=== PATIENT | female | born 2000 | race Caucasian/White ===

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

== ENCOUNTER 2018-06-12 13:30 | Inpatient (IN) ==
[2018-06-12] MEDS ORDERED: Sodium Chlor 0.9% Inj 500 ML IV.SIG PRN (14:18)
[2018-06-12] MEDS ORDERED: Sod Chloride 0.9% Inj 1,000 ML IV.CONT PRN (14:18)
[2018-06-12] MEDS ORDERED: fentaNYL Citrate Inj 100 MCG/2 ML Ampul IV.PUSH PRN ×2 (14:18)
[2018-06-12] MEDS ORDERED: Naloxone Inj 0.4 MG/ML Vial IV.PUSH PRN (14:18)
[2018-06-12] MEDS ORDERED: Citric Acid/Sodium Citrate Liq 30 ML UDC PO SCH (14:30)
[2018-06-12] MEDS ORDERED: Oxytocin 30 Units/500ml Premix 30 UNITS/500 ML BAG IV.SIG ONE (14:30)
--- NOTE | 2018-06-12 14:35 | P.HPFP ---
History of Present Illness Primary Care Physician: Karson Aguilar MD History of Present Illness: Patient is a [] year old G[]P[] at [] and []/7 weeks gestation by [US at __ weeks/LMP], KG [], who presents to the OB ED with []. []. She denies leakage of fluid, vaginal bleeding, and contractions. She feels baby moving regularly. She denies JACQUES/N/V/D/fever/sick contacts/SOB/calf pain/dizziness/seeing spots. OB care is with []. KG is 06/12/2018. Last US was 03/28/18. No evidence of placenta previa, normal amniotic fluid, orientation was cephalic. Initial lab was positive for chlamydia. Patient was treated and re- tested on 05-22-18, results were negative. All other labs were negative. No complications this . Medical conditions: none Surgical hx: none Social hx: Inpatient Certification: I certify that the inpatient services were ordered in accordance with Medicare regulations governing the order. This includes certification that hospital inpatient services are reasonable and necessary and in the case of services not specified as inpatient-only under 42 CFR 419.22(n), that they are appropriately provided as inpatient services in accordance to with the 2-midnight benchmark under 43 CFR 412.3(e) Estimated Total Length of Stay (Days): 2 Plans for Post Hospital Care: Home Medications and Allergies Allergies Allergy/AdvReac Type Severity Reaction Status Date / Time ibuprofen Allergy Severe Hives Verified 05/17/18 05:29 Home Medications Medication Instructions Recorded Confirmed Type No Known Home Medications 05/17/18 05/17/18 History Exam Vital signs: Vital Signs 06/12/18 13:47 06/12/18 14:00 Temperature 98.7 F Pulse Rate 90 Respiratory Rate 20 Blood Pressure 140/83 Caprini VTE Risk Assessment Caprini Risk Assessment Model: Point Value = 1 Point Value = 2 Point Value = 3 Point Value = 5 Age 41-60 Minor surgery BMI > 25 kg/m2 Swollen legs Varicose veins or History of unexplained or recurrent spontaneous Oral contraceptives or hormone replacement Sepsis (< 1 month) Serious lung disease, including pneumonia (< 1 month) Abnormal pulmonary function Acute myocardial infarction Congestive heart failure (< 1 month) History of inflammatory bowel disease Medical patient at bed rest Age 61-74 Arthroscopic surgery Major open surgery (> 45 min) Laparoscopic surgery (> 45 min) Malignancy Confined to bed (> 72 hours) Immobilizing plaster cast Central venous access Age >= 75 History of VTE Family history of VTE Factor V Leiden Prothrombin [id number] Lupus anticoagulant Anticardiolipin antibodies Elevated serum homocysteine Heparin-induced thrombocytopenia Other congenital or acquired thrombophilia Stroke (< 1 month) Elective arthroplasty Hip, pelvis, or leg fracture Acute spinal cord injury (< 1 month) Prophylaxis Regimen: Total Risk Factor Score Risk Level Prophylaxis Regimen 0-1 Low Early ambulation 2 Moderate Order ONE of the following: *Sequential Compression Device (SCD) *Heparin 5000 units SQ BID 3-4 Higher Order ONE of the following medications: *Heparin 5000 units SQ TID *Enoxaparin/Lovenox 40 mg SQ daily (WT < 150 kg, CrCl > 30 mL/min) *Enoxaparin/Lovenox 30 mg SQ daily (WT < 150 kg, CrCl > 10-29 mL/min) *Enoxaparin/Lovenox 30 mg SQ BID (WT < 150 kg, CrCl > 30 mL/min) AND/OR *Sequential Compression Device (SCD) 5 or more Highest Order ONE of the following medications: *Heparin 5000 units SQ TID (Preferred with Epidurals) *Enoxaparin/Lovenox 40 mg SQ daily (WT < 150 kg, CrCl > 30 mL/min) *Enoxaparin/Lovenox 30 mg SQ daily (WT < 150 kg, CrCl > 10-29 mL/min) *Enoxaparin/Lovenox 30 mg SQ BID (WT < 150 kg, CrCl > 30 mL/min) AND *Sequential Compression Device (SCD)
--- NOTE | 2018-06-12 14:36 | ED ---
History of Present Illness Primary Care Physician: Karson Aguilar MD Chief Complaint: leakage of fluid History of Present Illness: Patient is a 17 year old at 40 and 0 weeks gestation by [US at 11 weeks], KG 06/12/2018, who presents to the OB ED with leakage of clear fluid. Also endorses pelvic pressure. These symptoms started at 9 pm last night. Had a brief episode of cramping that resolved. She denies vaginal bleeding and contractions. She feels baby moving regularly. She denies JACQUES/N/V/D/fever/sick contacts/SOB/calf pain/dizziness/seeing spots. OB care is with Dr. Gregory. KG is 06/12/2018. Last US was 06/12/2018. No evidence of placenta previa, normal amniotic fluid, orientation was cephalic. Wt was at the 73% for 34 w3d. Wt at the time was estimated to be 5lbs. Initial lab was positive for chlamydia. Patient was treated and re- tested on 05-22-18, results were negative. All other labs were negative. No complications this . Medications or supplements: none Medical conditions: none Surgical hx: none Social hx: none - Inpatient Certification I certify that the inpatient services were ordered in accordance with Medicare regulations governing the order. This includes certification that hospital inpatient services are reasonable and necessary and in the case of services not specified as inpatient-only under 42 CFR 419.22(n), that they are appropriately provided as inpatient services in accordance to with the 2-midnight benchmark under 43 CFR 412.3(e) Estimated Total Length of Stay (Days): 2 Plans for Post Hospital Care: Home [facility] - History History Provided By: Patient - Tobacco History Tobacco Use In Past 30 Days: No Medications and Allergies Allergies Allergy/AdvReac Type Severity Reaction Status Date / Time ibuprofen Allergy Severe Hives Verified 05/17/18 05:29 Home Medications Medication Instructions Recorded Confirmed Type No Known Home Medications 05/17/18 06/12/18 History Active Medications: Active Medications Citric Acid/Sodium Citrate (Sodium Citrate/Citric Acid Liq) 30 ml 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 Stop: 06/16/18 14:29 Fentanyl Citrate (Fentanyl Inj) 100 mcg IV.PUSH Q1H PRN PRN Reason: PAIN SCALE 6 TO 10 Fentanyl Citrate (Fentanyl Inj) 50 mcg IV.PUSH Q1H PRN PRN Reason: Pain Scale 3 - 5 Lactated Ringer's (Lr 1000 Ml Inj) 1,000 mls @ 125 mls/hr IV.CONT .Q8H ROSSI Lactated Ringer's (Lr 1000 Ml Inj) 1,000 mls @ 3,000 mls/hr IV.SIG UNSCH PRN PRN Reason: compromise or epidural Sodium Chloride (Ns Inj) 500 mls @ 1,000 mls/hr IV.SIG UNSCH PRN PRN Reason: SEE LABEL COMMENTS Sodium Chloride (Ns Inj) 1,000 mls @ 100 mls/hr IV.CONT .Q10H PRN PRN Reason: SEE LABEL COMMENTS Oxytocin (Pitocin 30 Units/Ns 500 Ml Premix) 30 units in 500 mls @ 999 mls/hr IV.SIG BOLUS ONE Stop: 06/12/18 15:00 Lidocaine HCl (Xylocaine 1% Inj) 0.1 ml I-DERMAL PRN PRN PRN Reason: For IV start Stop: 06/15/18 14:17 Lidocaine HCl (Xylocaine 1% Inj) 10 ml INFILTRATN PRN PRN PRN Reason: For episiotomy repair Stop: 06/14/18 14:17 Mineral Oil (Muri-Lube Oil) 10 ml TOPICAL UNSCH PRN PRN Reason: PRN perineal massage Naloxone HCl (Narcan Inj) 0.1 mg IV.PUSH Q2M PRN PRN Reason: for opiate reversal Ondansetron HCl (Zofran Inj) 4 mg IV.PUSH Q6H PRN PRN Reason: NAUSEA OR VOMITING Exam Vital signs: Vital Signs 06/12/18 13:47 06/12/18 14:00 06/12/18 14:27 Temperature 98.7 F Pulse Rate 90 Respiratory Rate 20 18 Blood Pressure 140/83 Intake & Output 06/11/18 06/12/18 06/12/18 18:59 06:59 18:59 Weight 95.254 kg Narrative: GENERAL: Well-nourished, well-developed patient. SKIN: Warm and dry. HEAD: Normocephalic and atraumatic. EYES: No scleral icterus. No injection or drainage. ENT: No nasal drainage noted. Mucous membranes pink. Airway patent. NECK: Supple, trachea midline. No JVD. CARDIOVASCULAR: Regular rate and rhythm without murmurs, gallops, or rubs. RESPIRATORY: Breath sounds equal bilaterally. No accessory muscle use. BREASTS: Bilateral exam showed no masses , no retractions, no nipple discharge. ABDOMEN/GI: Abdomen soft, non-tender, bowel sounds present, no rebound, no guarding Gravid to 40 weeks size GENITOURINARY: External Genitalia: intact and normal in appearance Cervix: midline Dilatation: 6cm Effacement: 80 Station: -1 Presentation: cephalic Membranes: forebag Uterine Contractions: irregular variability FHT's: Category: 1 Baseline: 140 Reactive: yes Variability: moderate Decels: negative EXTREMITIES: No cyanosis or edema. BACK: Nontender without obvious deformity. No CVA tenderness. NEUROLOGICAL: Awake and alert. Motor and sensory grossly within normal limits. Five out of 5 muscle strength in all muscle groups. Normal speech. Results - Labs CBC & Chem 7: 06/12/18 14:26 Assessment and Plan - Diagnosis (1) 40 weeks gestation of Code(s): Z3A.40 - 40 weeks gestation of Status: Acute - Plan A/P Patient is a 17 year old at 40/0 weeks gestation who presents to OB ED with leakage of fluid. Cat 1 tracing, 6/80/-1 w/forebag. Amnisure positive. GBS negative. Desires epidural and plans to breastfeed and use OCPs after delivery. Admit to labor and delivery Monitor heart tones Routine care Recheck in 2 hours Discussed w/Dr. Marinelli - Attending Attestation The exam, history, and the medical decision-making described in the above note were completed with the assistance of the resident physician. I reviewed and agree with the findings presented. I attest that I had a [id number] encounter with the patient on the same day, and personally performed and documented my assessment and findings in the medical record. 17 at 40wks presenting with SROM, +amnisure, 6/80/0 with forebag, Ctx Q4min, Cat 1 Strip, GBS Neg, admitted for active labor, expecting mgmt, US- 34wks, vtx, efw 73%, 5lb. 14oz., no previa, VALENTE WNL. Case discussed with Dr. Swain. -Susanne Marinelli M.D. Discharge Plan - Physicians Team Primary Care Provider: Karson Aguilar Attending Provider: uSsanne Marinelli
[2018-06-12 14:55] LABS: Baso # (Auto) 0.1 th/mm3 (0.0-0.2); Baso % (Auto) 0.7 % (0.0-2.0); Eos # (Auto) 0.1 th/mm3 (0.0-0.4); Hematocrit 30.3 % (35.0-46.0); Hemoglobin 9.9 gm/dL (11.6-15.3); Lymph # (Auto) 1.9 th/mm3 (1.0-4.8); Mean Corpuscular HGB Conc 32.5 % (32.0-36.0); Mean Corpuscular Hemoglobin 24.3 pg (27.0-34.0); Mean Corpuscular Volume 74.8 fL (80.0-100.0); Mean Platelet Volume 8.3 fL (7.0-11.0); Mono % (Auto) 7.9 % (0.0-8.0); Neut # (Auto) 9.5 th/mm3 (1.8-7.7); Neut % (Auto) 75.4 % (16.0-70.0); Platelet Count 233 th/mm3 (150-450); Red Blood Count 4.05 mil/mm3 (4.00-5.30); White Blood Count 12.6 th/mm3 (4.0-11.0)
--- NOTE | 2018-06-12 15:07 | P.HPOB ---
History of Present Illness Primary Care Physician: Karson Aguilar MD Chief Complaint: leakage of fluid History of Present Illness: Patient is a 17 year old at 40 and 0 weeks gestation by [US at 11 weeks], KG 06/12/2018, who presents to the OB ED with leakage of clear fluid. Also endorses pelvic pressure. These symptoms started at 9 pm last night. Had a brief episode of cramping that resolved. She denies vaginal bleeding and contractions. She feels baby moving regularly. She denies JACQUES/N/V/D/fever/sick contacts/SOB/calf pain/dizziness/seeing spots. OB care is with Dr. Gregory. KG is 06/12/2018. Last US was 06/12/2018. No evidence of placenta previa, normal amniotic fluid, orientation was cephalic. Wt was at the 73% for 34 w3d. Wt at the time was estimated to be 5lbs. Initial lab was positive for chlamydia. Patient was treated and re- tested on 05-22-18, results were negative. All other labs were negative. No complications this . Medications or supplements: none Medical conditions: none Surgical hx: none Social hx: none - Inpatient Certification I certify that the inpatient services were ordered in accordance with Medicare regulations governing the order. This includes certification that hospital inpatient services are reasonable and necessary and in the case of services not specified as inpatient-only under 42 CFR 419.22(n), that they are appropriately provided as inpatient services in accordance to with the 2-midnight benchmark under 43 CFR 412.3(e) Estimated Total Length of Stay (Days): 2 Plans for Post Hospital Care: Home [facility] - History History Provided By: Patient - Tobacco History Tobacco Use In Past 30 Days: No Medications and Allergies Active Medications: Active Medications Citric Acid/Sodium Citrate (Sodium Citrate/Citric Acid Liq) 30 ml PO SPEECH LANGUAGE THERAPIST [facility] Stop: 06/16/18 14:29 Fentanyl Citrate (Fentanyl Inj) 100 mcg IV.PUSH Q1H PRN PRN Reason: PAIN SCALE 6 TO 10 Fentanyl Citrate (Fentanyl Inj) 50 mcg IV.PUSH Q1H PRN PRN Reason: Pain Scale 3 - 5 Lactated Ringer's (Lr 1000 Ml Inj) 1,000 mls @ 125 mls/hr IV.CONT .Q8H [facility] Lactated Ringer's (Lr 1000 Ml Inj) 1,000 mls @ 3,000 mls/hr IV.SIG UNSCH PRN PRN Reason: compromise or epidural Sodium Chloride (Ns Inj) 500 mls @ 1,000 mls/hr IV.SIG UNSCH PRN PRN Reason: SEE LABEL COMMENTS Sodium Chloride (Ns Inj) 1,000 mls @ 100 mls/hr IV.CONT .Q10H PRN PRN Reason: SEE LABEL COMMENTS Oxytocin (Pitocin 30 Units/Ns 500 Ml Premix) 30 units in 500 mls @ 999 mls/hr IV.SIG BOLUS ONE Stop: 06/12/18 15:00 Lidocaine HCl (Xylocaine 1% Inj) 0.1 ml I-DERMAL PRN PRN PRN Reason: For IV start Stop: 06/15/18 14:17 Lidocaine HCl (Xylocaine 1% Inj) 10 ml INFILTRATN PRN PRN PRN Reason: For episiotomy repair Stop: 06/14/18 14:17 Mineral Oil (Muri-Lube Oil) 10 ml TOPICAL UNSCH PRN PRN Reason: PRN perineal massage Naloxone HCl (Narcan Inj) 0.1 mg IV.PUSH Q2M PRN PRN Reason: for opiate reversal Ondansetron HCl (Zofran Inj) 4 mg IV.PUSH Q6H PRN PRN Reason: NAUSEA OR VOMITING Allergies Allergy/AdvReac Type Severity Reaction Status Date / Time ibuprofen Allergy Severe Hives Verified 05/17/18 05:29 Home Medications Medication Instructions Recorded Confirmed Type No Known Home Medications 05/17/18 05/17/18 History Exam Vital signs: Vital Signs 06/12/18 13:47 06/12/18 14:00 06/12/18 14:27 Temperature 98.7 F Pulse Rate 90 Respiratory Rate 20 18 Blood Pressure 140/83 Intake & Output 06/11/18 06/12/18 06/12/18 18:59 06:59 18:59 Weight 95.254 kg Narrative: GENERAL: Well-nourished, well-developed patient. SKIN: Warm and dry. HEAD: Normocephalic and atraumatic. EYES: No scleral icterus. No injection or drainage. ENT: No nasal drainage noted. Mucous membranes pink. Airway patent. NECK: Supple, trachea midline. No JVD. CARDIOVASCULAR: Regular rate and rhythm without murmurs, gallops, or rubs. RESPIRATORY: Breath sounds equal bilaterally. No accessory muscle use. BREASTS: Bilateral exam showed no masses , no retractions, no nipple discharge. ABDOMEN/GI: Abdomen soft, non-tender, bowel sounds present, no rebound, no guarding Gravid to 40 weeks size GENITOURINARY: External Genitalia: intact and normal in appearance Cervix: midline Dilatation: 6cm Effacement: 80 Station: -1 Presentation: cephalic Membranes: forebag Uterine Contractions: irregular variability FHT's: Category: 1 Baseline: 140 Reactive: yes Variability: moderate Decels: negative EXTREMITIES: No cyanosis or edema. BACK: Nontender without obvious deformity. No CVA tenderness. NEUROLOGICAL: Awake and alert. Motor and sensory grossly within normal limits. Five out of 5 muscle strength in all muscle groups. Normal speech. Assessment and Plan - Diagnosis (1) 40 weeks gestation of Code(s): Z3A.40 - 40 weeks gestation of Status: Acute - Plan A/P Patient is a 17 year old at 40/0 weeks gestation who presents to OB ED with leakage of fluid. Cat 1 tracing, 6/80/-1 w/forebag. Amnisure positive. GBS negative. Desires epidural and plans to breastfeed and use OCPs after delivery. Admit to labor and delivery Monitor heart tones Routine care Recheck in 2 hours Discussed w/Dr. Marinelli The exam, history, and the medical decision-making described in the above note were completed with the assistance of the resident physician. I reviewed and agree with the findings presented. I attest that I had a [id number] encounter with the patient on the same day, and personally performed and documented my assessment and findings in the medical record. 17 at 40wks presenting with SROM, +amnisure, 6/80/0 with forebag, Ctx Q4min, Cat 1 Strip, GBS Neg, admitted for active labor, expecting mgmt, US- 34wks, vtx, efw 73%, 5lb. 14oz., no previa, VALENTE WNL. Due to ROM at 9AM, due to > 18hrs ruptured will start PNC, Case discussed with Dr. Swain. -Susanne Marinelli M.D. Discharge Plan - Discharge Disposition Patient Disposition: ED Admit(ED Internal Use Only) - Physicians Team ED Provider: Susanne Marinelli Primary Care Provider: Karson Aguilar
[2018-06-12 15:09] LABS: Bacteria,Urine Occasional /hpf; Bilirubin,Urine Negative (Negative); Clarity,Urine Clear (Clear); Color,Urine Yellow (Yellw/Straw); Glucose,Urine (UA) Negative (Negative); Leukocyte Esterase,Urine Moderate (Negative); Mucus,Urine Few /lpf (Occasional); Nitrite,Urine Negative (Negative); Specific Gravity,Urine 1.005 (1.002-1.035); Squamous Epithelial Cell,Urine 2 /hpf (0-5)
[2018-06-12] MEDS ORDERED: Sodium Chloride 0.9% 2 ML Flush PRN IV.FLUSH (16:33)
[2018-06-12] MEDS ORDERED: fentaNYL 2MCG-Bupiv 0.125% Epi 150 ML EPIDURAL ONE (16:55)
[2018-06-12] MEDS ORDERED: Penicillin G Potassium Inj 5,000,000 UNIT in Sodium Chloride 0.9% Inj 100 ML IV.SIG ONE (17:00)
--- NOTE | 2018-06-12 17:03 | P.PNADD ---
Addendum to Inpatient Note Reason for Addendum: Additional Documentation Additional information: Patient was rechecked and found to be 6 cm. Epidural was ordered. Strip remains Cat 1. Discussed w/nursing and Dr. Marinelli. The exam, history, and the medical decision-making described in the above note were completed with the assistance of the resident physician. I reviewed and agree with the findings presented. I attest that I had a [id number] encounter with the patient on the same day, and personally performed and documented my assessment and findings in the medical record. -Susanne Marinelli MD
[2018-06-12] MEDS ORDERED: fentaNYL Citrate Inj 100 MCG/2 ML Ampul EPIDURAL ONE (17:29)
[2018-06-12] MEDS ORDERED: fentaNYL 2MCG-Bupiv 0.125% Epi 150 ML EPIDURAL PRN (17:29)
[2018-06-12 17:50] LABS: Rubella IgG Antibody 120.5 IU/mL (10.0-500.0)
[2018-06-12] MEDS ORDERED: Oxytocin 30 Units/500ml Premix 30 UNITS/500 ML BAG IV.SIG PRN (18:57)
--- NOTE | 2018-06-12 19:09 | P.OBLABOR ---
Subjective Interval history: Pt doing well. No complaints. Pain is well-controlled with epidural. Still waiting for father of baby to arrive, but agrees to starting Pitocin. Objective Vital Signs: Vital Signs - 8 hr 06/12/18 13:47 06/12/18 14:00 06/12/18 14:27 Temperature 98.7 F Pulse Rate 90 Respiratory Rate 20 18 Blood Pressure 140/83 06/12/18 15:31 06/12/18 15:32 06/12/18 16:43 Temperature 98.2 F Pulse Rate 73 Respiratory Rate 18 18 Blood Pressure 122/70 06/12/18 16:44 06/12/18 17:01 06/12/18 17:13 Temperature Pulse Rate 86 109 H 95 H Respiratory Rate 18 Blood Pressure 112/61 133/74 122/75 06/12/18 17:15 06/12/18 17:20 06/12/18 17:30 Temperature Pulse Rate 79 89 88 Respiratory Rate Blood Pressure 126/64 130/69 122/76 06/12/18 17:40 06/12/18 17:53 06/12/18 18:00 Temperature Pulse Rate 95 H 98 H 96 H Respiratory Rate 18 Blood Pressure 137/80 132/75 132/73 06/12/18 18:58 Temperature Pulse Rate 82 Respiratory Rate 18 Blood Pressure 129/73 Objective: Pelvic Exam: Cervix: midline Dilatation: 6cm Effacement: 80 Station: 0 Presentation: vertex Membranes: ruptured Uterine Contractions: q2min FHT's: Category: 1 Baseline: 120s Reactive: yes Variability: moderate Decels: none Assessment and Plan - Diagnosis (1) 40 weeks gestation of Code(s): Z3A.40 - 40 weeks gestation of Status: Acute Plan: Patient is a 17 year old at 40/0 weeks gestation who presents to OB ED with leakage of fluid. Cat 1 tracing, /-1 w/forebag on admission. Amnisure positive. GBS negative. Desires epidural and plans to breastfeed and use OCPs after delivery. Continue to monitor heart tones- Cat 1, reassuring at this time Forebag ruptured, IUPC placed Due to pt being ruptured since 2100 last night, abx were ordered prophylactically -Penicillin G [id number] units x1 -Pen G [id number] units q4h Pitocin started The exam, history, and the medical decision-making described in the above note were completed with the assistance of the resident physician. I reviewed and agree with the findings presented. I attest that I had a [id number] encounter with the patient on the same day, and personally performed and documented my assessment and findings in the medical record. -Susanne Marinelli MD
[2018-06-12] MEDS ORDERED: Penicillin G Potassium Inj 2,500,000 UNIT in Sodium Chlor 0.9% Inj 100 ML IV.SIG SCH ×2 (20:02→21:00)
[2018-06-12] MEDS ORDERED: Bupivacaine PF 0.25% Inj 10 ML Vial ONE (21:52)
--- NOTE | 2018-06-12 22:45 | P.OBLABOR ---
Subjective Interval history: Patient doing well, epidural in place. Patient reports that she is feeling more vaginal pressure with the ctx. Objective Vital Signs: Vital Signs - 8 hr 06/12/18 15:31 06/12/18 15:32 06/12/18 16:43 Temperature 98.2 F Pulse Rate 73 Respiratory Rate 18 18 Blood Pressure 122/70 06/12/18 16:44 06/12/18 17:01 06/12/18 17:13 Temperature Pulse Rate 86 109 H 95 H Respiratory Rate 18 Blood Pressure 112/61 133/74 122/75 06/12/18 17:15 06/12/18 17:20 06/12/18 17:30 Temperature Pulse Rate 79 89 88 Respiratory Rate Blood Pressure 126/64 130/69 122/76 06/12/18 17:40 06/12/18 17:53 06/12/18 18:00 Temperature Pulse Rate 95 H 98 H 96 H Respiratory Rate 18 Blood Pressure 137/80 132/75 132/73 06/12/18 18:58 06/12/18 19:20 06/12/18 19:30 Temperature 97.8 F Pulse Rate 82 78 81 Respiratory Rate 18 18 Blood Pressure 129/73 143/73 H 126/71 06/12/18 20:15 06/12/18 20:30 06/12/18 20:45 Temperature Pulse Rate 85 81 82 Respiratory Rate 18 18 Blood Pressure 133/72 118/56 L 129/73 06/12/18 21:15 06/12/18 21:30 06/12/18 21:45 Temperature 99.2 F Pulse Rate 89 Respiratory Rate 18 18 Blood Pressure 130/65 Objective: Pelvic Exam: Cervix: [-] Dilatation: [-] Effacement: [-] Station: [-] Presentation: [-] Membranes: [intact or ruptured] Uterine Contractions: [-] FHT's: Category: [-] Baseline: [-] Reactive: [-] Variability: [-] Decels: [-] Weeks Gestation: 40 Patient Started Active Labor: Yes Assessment and Plan - Diagnosis (1) 40 weeks gestation of Code(s): Z3A.40 - 40 weeks gestation of Status: Acute Plan: Patient is a 17 year old at 40/0 weeks gestation who presents to OB ED with leakage of fluid. Cat 1 tracing, /-1 w/forebag on admission. Amnisure positive. GBS negative. Desires epidural and plans to breastfeed and use OCPs after delivery. Continue to monitor heart tones- Cat 1, reassuring at this time Forebag ruptured, IUPC placed Due to pt being ruptured since 2100 last night, abx were ordered prophylactically -Penicillin G [id number] units x1 -Pen G [id number] units q4h Pitocin started The exam, history, and the medical decision-making described in the above note were completed with the assistance of the resident physician. I reviewed and agree with the findings presented. I attest that I had a [id number] encounter with the patient on the same day, and personally performed and documented my assessment and findings in the medical record. -Susanne Marinelli MD - Plan 17 y/o at 40wks who presented in active labor with +SROM that occurred at 9PM on 06/11, +amnisure. Last US- 34wks, vtx, efw 73%, 5lb. 14oz., no previa, VALENTE WNL, HD#1 EFM: 140's, +accels, -decels, moderate variability, Cat 1 tracing SVE 9-10/90/-2, soft, anterior, vertex presentation, IUPC in place TOCO Q2-3minutes, regular 1. Active Labor: Progressing well, cont. Pitocin to keep MVU's adequate, will monitor for signs of distress. 2. GBS Neg: Due to ROM at 9PM on 06/11 ( >18hrs) started on PNC on admission for infection PPX , will monitor for signs of infection 3. +Chlamydia in : Neg NORBERT on 05/22 4. Disposition: progressing well, expectant management. Case discussed with Dr. Swain on admission who agrees with plan. -Susanne Marinelli M.D.
[2018-06-12] MEDS: Sodium Chloride 0.9% 2 ML Flush BID IV.FLUSH SCH (22:52)
--- NOTE | 2018-06-13 01:30 | P.OBDELI ---
Weeks Gestation: 40 Artificial Rupture of Membrane: No Anesthesia: Epidural Episiotomy: none Vaginal Delivery: Normal Presentation: Occiput anterior Nuchal Cord: None Delayed Cord Clamping (45 sec): Yes Placenta: Spontaneous delivery, Intact Laceration: Vaginal (left periurethral, gallardo in and out cath placed during repair), Perineal (2nd degree midline), 2 deg Infant: Male Infant Male A Delivery Date: 06/13/18 Infant Delivery Time: 00:23 Weight: 3.941 kg score (1 min): 8 score (5 min): 9 Additional Information: The exam, history, and the medical decision-making described in the above note were completed with the assistance of the resident physician. I reviewed and agree with the findings presented. I attest that I had a [id number] encounter with the patient on the same day, and personally performed and documented my assessment and findings in the medical record. s/p , uncomplicated, VMI, apgars 8/9, BW 8lb. 11oz. , 2nd degree ML laceration repaired with 3-[address], L periurethral suture repaired with 3-0 vicryl rapide on SH with (in and out cath placed in the urethra during repair). After the repair, rectal exam performed with mucosa intact. Patient stable, I assisted with both the delivery and the repair. -Susanne Marinelli MD
[2018-06-13] MEDS ORDERED: Zolpidem Tartrate 5 MG Tablet PO PRN (01:31)
[2018-06-13] MEDS ORDERED: Oxytocin 30 Units/500ml Premix 30 UNITS/500 ML BAG IV.CONT PRN (01:31)
[2018-06-13] MEDS ORDERED: Bisacodyl 10 MG Supp RECTAL PRN (01:31)
[2018-06-13] MEDS: Witch Hazel 50%/Glyderin 12.5% 40 Pad Jar RECTAL PRN (05:54)
[2018-06-13] MEDS: Benzocaine 20% Top Spray 60 ML Can TOPICAL PRN (05:54)
[2018-06-13] MEDS: Senna/Docusate Sodium 8.6/50 MG Tablet PO SCH ×2 (08:47→21:13)
[2018-06-13] MEDS: Prenatal Vit/Ca/Iron/Folic Acid Tablet PO SCH (08:47)
[2018-06-13] MEDS: Sodium Chloride 0.9% 2 ML Flush BID IV.FLUSH SCH ×2 (08:48→21:16)
[2018-06-13] MEDS: Acetaminophen 325 MG Tablet PO PRN ×2 (15:19→21:13)
[2018-06-13] MEDS ORDERED: Diphtheria/Tetanus/Pertussis Vaccine Inj 0.5 ML Syringe IM ONE (16:00)
[2018-06-13] MEDS ORDERED: Measles/Mumps/Rubella Vaccine Inj 0.5 ML Vial SQ ONE (16:00)
[2018-06-14] MEDS: Acetaminophen 325 MG Tablet PO PRN ×3 (05:46→16:05)
--- NOTE | 2018-06-14 08:11 | P.PNOB ---
Subjective Post day: 1 Interval history: day # 1. AFVSS overnight. Pain well-controlled. Decreased lochia. Denies dysuria. No breast tenderness. She is feeding the baby via breast/ bottle. Appetite good. No nausea or vomiting. + flatus. no bowel movement. Ambulating well. Denies calf pain, shortness of breath, or cough. Otherwise, she is doing well this morning and has no other complaints. Objective Vital Signs/I&O: Vital Signs 06/13/18 08:40 06/13/18 19:50 Temperature 98.0 F 98.2 F Pulse Rate 85 89 Respiratory Rate 16 18 Blood Pressure 119/69 110/59 L Result Diagrams: 06/12/18 14:26 Objective Remarks: GENERAL: Well-nourished, well-developed patient. CARDIOVASCULAR: Regular rate and rhythm without murmurs, gallops, or rubs. RESPIRATORY: Breath sounds equal bilaterally. No accessory muscle use. ABDOMEN/GI: Abdomen soft, non-tender. Fundus: Firm, non-tender at umbilicus. GENITOURINARY: Light to moderate bleeding. EXTREMITIES: No cyanosis or edema, non-tender, without signs of DVT. Medications and IVs: Active Medications Acetaminophen (Tylenol) 650 mg PO Q4H PRN PRN Reason: PAIN SCALE 1 TO 2 Last Admin: 06/14/18 05:46 Dose: 650 mg Al Hydroxide/Mg Hydroxide (Milk Of Magnesia Liq) 30 ml PO Q12H PRN PRN Reason: Mild Constipation Benzocaine (Americaine 20% [place]) 1 spray TOPICAL Q4H PRN PRN Reason: For Perineum Discomfort Last Admin: 06/13/18 05:54 Dose: 1 spray Bisacodyl (Dulcolax Supp) 10 mg RECTAL DAILY PRN PRN Reason: SEVERE CONSITIPATION Citric Acid/Sodium Citrate (Sodium Citrate/Citric Acid Liq) 30 ml PO ANIMAL WARDEN [facility] Stop: 06/16/18 14:29 Penicillin G Potassium 2,500, (000 unit/ Sodium Chloride) 100 mls @ 200 mls/hr IV.SIG Q4H [facility] Last Admin: 06/12/18 21:37 Dose: 200 mls/hr Fentanyl/Bupivacaine/Sodium Chlor (Fentanyl 2 Mcg-Bupiv 0.125% Epi) 150 mls @ 12 mls/hr EPIDURAL PRN PRN PRN Reason: for Labor Pain Oxytocin (Pitocin 30 Units/Ns 500 Ml Premix) 30 units in 500 mls @ 2 mls/hr IV.SIG TITRATE PRN; Protocol PRN Reason: For induction of labor Last Admin: 06/13/18 01:37 Dose: 2 milliunit/min, 2 mls/hr Oxytocin (Pitocin 30 Units/Ns 500 Ml Premix) 30 units in 500 mls @ 100 mls/hr IV.CONT UNSCH PRN PRN Reason: Heavy bleeding Lactulose (Lactulose Liq) 30 ml PO DAILY PRN PRN Reason: SEVERE CONSITIPATION Lidocaine HCl (Xylocaine 1% Inj) 0.1 ml I-DERMAL PRN PRN PRN Reason: For IV start Stop: 06/15/18 14:17 Last Admin: 06/13/18 01:36 Dose: 0.1 ml Lidocaine HCl (Xylocaine 1% Inj) 10 ml INFILTRATN PRN PRN PRN Reason: For episiotomy repair Stop: 06/14/18 14:17 Mineral Oil (Muri-Lube Oil) 10 ml TOPICAL UNSCH PRN PRN Reason: PRN perineal massage Last Admin: 06/13/18 01:36 Dose: 10 ml Naloxone HCl (Narcan Inj) 0.1 mg IV.PUSH Q2M PRN PRN Reason: for opiate reversal Ondansetron HCl (Zofran Inj) 4 mg IV.PUSH Q6H PRN PRN Reason: NAUSEA OR VOMITING Oxycodone HCl (Roxicodone) 5 mg PO Q6H PRN PRN Reason: pain 6 to 10 Last Admin: 06/14/18 02:39 Dose: 5 mg Vit/Calcium/Iron/Folic Ac (Stuartnatal Plus 3) 1 tab PO DAILY [facility] Last Admin: 06/13/18 08:47 Dose: 1 tab Senna/Docusate Sodium (Ayesha-Colace) 1 tab PO BID [facility] Last Admin: 06/13/18 21:13 Dose: 1 tab Sennosides (Senokot) 17.2 mg PO Q12H PRN PRN Reason: Moderate Constipation Sodium Chloride (Ns Flush) 2 ml IV.FLUSH BID [facility] Last Admin: 06/13/18 21:16 Dose: 2 ml Sodium Chloride (Ns Flush) 2 ml IV.FLUSH PRN PRN PRN Reason: FLUSH AFTER USING IV ACCESS Witch Demi/Glycerin (Tucks Pads) 1 applicatio RECTAL QID PRN PRN Reason: HEMORRHOIDS Last Admin: 06/13/18 05:54 Dose: 1 applicatio Zolpidem Tartrate (Ambien) 5 mg PO HS PRN PRN Reason: SLEEP Assessment and Plan - Diagnosis (1) 40 weeks gestation of Code(s): Z3A.40 - 40 weeks gestation of Status: Acute Plan: 17 y/o who is PPD# 1 s/p . -Continue routine care. -oxycodone PRN pain. Pt has a Motrin allergy. -Encouraged OOB. Advised pelvic rest for 6 wks. -Will need a f/u appt. within 6 wks. -Re: ctrl, she would like OCPs and IUD later. -D/c tomorrow. wdw Dr. Alvarado - Attending Attestation The exam, history, and the medical decision-making described in the above note were completed with the assistance of the resident physician. I reviewed and agree with the findings presented. I attest that I had a [id number] encounter with the patient on the same day, and personally performed and documented my assessment and findings in the medical record.
[2018-06-14] MEDS: Prenatal Vit/Ca/Iron/Folic Acid Tablet PO SCH (08:39)
[2018-06-14] MEDS: Senna/Docusate Sodium 8.6/50 MG Tablet PO SCH ×2 (08:39→20:56)
[2018-06-14] MEDS: Witch Hazel 50%/Glyderin 12.5% 40 Pad Jar RECTAL PRN (11:27)
[2018-06-14] MEDS: Sodium Chloride 0.9% 2 ML Flush BID IV.FLUSH SCH (16:03)
[2018-06-15] MEDS: Sodium Chloride 0.9% 2 ML Flush BID IV.FLUSH SCH (00:38)
[2018-06-15] MEDS: Witch Hazel 50%/Glyderin 12.5% 40 Pad Jar RECTAL PRN ×2 (03:01→12:08)
[2018-06-15] MEDS: Benzocaine 20% Top Spray 60 ML Can TOPICAL PRN ×2 (03:01→12:08)
[2018-06-15] MEDS: Acetaminophen 325 MG Tablet PO PRN ×2 (07:00→12:09)
--- NOTE | 2018-06-15 08:03 | P.PNOB ---
Subjective Post day: 2 Interval history: day # 2. AFVSS overnight. Pain well-controlled. Decreased lochia. Denies dysuria. No breast tenderness. She is feeding the baby via breast/ bottle. Appetite good. No nausea or vomiting. + flatus. one bowel movement. Ambulating well. Denies calf pain, shortness of breath, or cough. Otherwise, she is doing well this morning and has no other complaints. Objective Vital Signs/I&O: Vital Signs 06/14/18 20:00 Temperature 97.9 F Pulse Rate 86 Respiratory Rate 18 Blood Pressure 131/74 Result Diagrams: 06/12/18 14:26 Objective Remarks: GENERAL: Well-nourished, well-developed patient. CARDIOVASCULAR: Regular rate and rhythm without murmurs, gallops, or rubs. RESPIRATORY: Breath sounds equal bilaterally. No accessory muscle use. ABDOMEN/GI: Abdomen soft, non-tender. Fundus: Firm, non-tender at umbilicus. GENITOURINARY: Light to moderate bleeding. EXTREMITIES: No cyanosis or edema, non-tender, without signs of DVT. Medications and IVs: Active Medications Acetaminophen (Tylenol) 650 mg PO Q4H PRN PRN Reason: PAIN SCALE 1 TO 2 Last Admin: 06/15/18 07:00 Dose: 650 mg Al Hydroxide/Mg Hydroxide (Milk Of Magnesia Liq) 30 ml PO Q12H PRN PRN Reason: Mild Constipation Benzocaine (Americaine 20% Top [place]) 1 spray TOPICAL Q4H PRN PRN Reason: For Perineum Discomfort Last Admin: 06/15/18 03:01 Dose: 1 spray Bisacodyl (Dulcolax Supp) 10 mg RECTAL DAILY PRN PRN Reason: SEVERE CONSITIPATION Citric Acid/Sodium Citrate (Sodium Citrate/Citric Acid Liq) 30 ml PO [employer] OFFICER [facility], [facility] Stop: 06/16/18 14:29 Penicillin G Potassium 2,500, (000 unit/ Sodium Chloride) 100 mls @ 200 mls/hr IV.SIG Q4H [facility] Last Admin: 06/12/18 21:37 Dose: 200 mls/hr Fentanyl/Bupivacaine/Sodium Chlor (Fentanyl 2 Mcg-Bupiv 0.125% Epi) 150 mls @ 12 mls/hr EPIDURAL PRN PRN PRN Reason: for Labor Pain Oxytocin (Pitocin 30 Units/Ns 500 Ml Premix) 30 units in 500 mls @ 2 mls/hr IV.SIG TITRATE PRN; Protocol PRN Reason: For induction of labor Last Admin: 06/13/18 01:37 Dose: 2 milliunit/min, 2 mls/hr Oxytocin (Pitocin 30 Units/Ns 500 Ml Premix) 30 units in 500 mls @ 100 mls/hr IV.CONT UNSCH PRN PRN Reason: Heavy bleeding Lactulose (Lactulose Liq) 30 ml PO DAILY PRN PRN Reason: SEVERE CONSITIPATION Lidocaine HCl (Xylocaine 1% Inj) 0.1 ml I-DERMAL PRN PRN PRN Reason: For IV start Stop: 06/15/18 14:17 Last Admin: 06/13/18 01:36 Dose: 0.1 ml Mineral Oil (Muri-Lube Oil) 10 ml TOPICAL UNSCH PRN PRN Reason: PRN perineal massage Last Admin: 06/13/18 01:36 Dose: 10 ml Naloxone HCl (Narcan Inj) 0.1 mg IV.PUSH Q2M PRN PRN Reason: for opiate reversal Ondansetron HCl (Zofran Inj) 4 mg IV.PUSH Q6H PRN PRN Reason: NAUSEA OR VOMITING Oxycodone HCl (Roxicodone) 5 mg PO Q6H PRN PRN Reason: pain 6 to 10 Last Admin: 06/15/18 07:01 Dose: 5 mg Vit/Calcium/Iron/Folic Ac (Stuartnatal Plus 3) 1 tab PO DAILY [facility] Last Admin: 06/14/18 08:39 Dose: 1 tab Senna/Docusate Sodium (Ayesha-Colace) 1 tab PO BID [facility] Last Admin: 06/14/18 20:56 Dose: 1 tab Sennosides (Senokot) 17.2 mg PO Q12H PRN PRN Reason: Moderate Constipation Sodium Chloride (Ns Flush) 2 ml IV.FLUSH BID [facility] Last Admin: 06/15/18 00:38 Dose: Not Given Sodium Chloride (Ns Flush) 2 ml IV.FLUSH PRN PRN PRN Reason: FLUSH AFTER USING IV ACCESS Witch Demi/Glycerin (Tucks Pads) 1 applicatio RECTAL QID PRN PRN Reason: HEMORRHOIDS Last Admin: 06/15/18 03:01 Dose: 1 applicatio Zolpidem Tartrate (Ambien) 5 mg PO HS PRN PRN Reason: SLEEP Assessment and Plan - Diagnosis (1) 40 weeks gestation of Code(s): Z3A.40 - 40 weeks gestation of Status: Acute Plan: 17 y/o who is PPD# 2 s/p . -Continue routine care. -oxycodone PRN pain. Pt has a Motrin allergy. -Encouraged OOB. Advised pelvic rest for 6 wks. -Will need a f/u appt. within 6 wks. -Re: ctrl, she would like OCPs and IUD later. -D/c today wdw Dr. Garcia - Attending Attestation Patient seen and examined independently of resident. I discussed management plan with resident. I agree with documentation above. She is post day # 2 after vaginal delivery. She is resting comfortably in bed. Lochia about at level of menstrual period. Mild cramping intermittently, well controlled with medication. Will get mini-pill followed by IUD in our clinic. Anticipatory guidance given. Encourage . Report any significant bleeding (more than a menstrual cycle, large clots) and increasing pain immediately. Otherwise , she is stable to go home.
[2018-06-15 08:53] VITALS: BP 119/69; PULSE 93; RESP 16; TEMP 98.5
[2018-06-15] MEDS: Senna/Docusate Sodium 8.6/50 MG Tablet PO SCH (09:18)
[2018-06-15] MEDS: Prenatal Vit/Ca/Iron/Folic Acid Tablet PO SCH (09:18)
== END 2018-06-15 14:27 | disposition home or self-care (01) | DRG 807 ==
LOC: HOBED 13:30 → H2E 14:12 → H1EA 06-13 03:13
PROVIDERS: ADMIT Family Medicine; ATTEND Family Medicine
CPT/HCPCS: 59025; 81001; 83518; 84112; 85025; 86762; 86900; 86901; 87086; 99285; J2540; J2590; J7120